=== PATIENT | female | born 1950 | race Caucasian/White ===

== ENCOUNTER → 2021-07-14 | Outpatient (REF) | payer MEDICARE, SELFPAY | LOC: LABSPEC 10:45 | PROVIDERS: Visit Provider Nurse Practitioner Family | DX: Z20.822 Contact with and (suspected) exposure to COVID-19 (principal) | CPT/HCPCS: 86769 ==

== ENCOUNTER → 2021-10-11 09:51 | Outpatient (CLI) | payer MEDICARE, OTHER, SELFPAY ==
--- NOTE | 2021-10-11 09:57 | BI_ITS ---
MAMMOGRAPHY - BILATERAL SCREENING REASON FOR EXAM: Female, 71 years old. Routine annual screening examination. PERTINENT HISTORY: Personal history of breast cancer. Prior left lumpectomy. Aunt with breast cancer. TECHNIQUE: Digital bilateral breast carolyn (3D mammographic acquisition) in the CC and MLO projections. 2-D mediolateral oblique (MLO) and craniocaudad (CC) views of both breasts were obtained. CAD: Full Field Digital Mammography with Computer Added Detection was performed. COMPARISON: Comparison is made with prior outside examination dated 10/08/2020. FINDINGS: Breast Composition: There are scattered areas of fibroglandular density. There are no dominant masses or suspicious calcifications. The patient is status post lumpectomy in the upper deep lateral aspect of the left breast with resultant breast deformity and postoperative scarring. No other significant abnormalities are identified. There has been no significant change since the prior study. BI/SCRN MAMM (CAD)W/CAROLYN BILAT IMPRESSION: Stable bilateral screening mammogram. Yearly follow-up mammogram recommended. (A) ASSESSMENT CATEGORY: BIRADS Category 2: Benign. A letter regarding these results will be sent to the patient by the facility within 30 days. Approximately 10% of breast cancers are not detected by mammography. A normal mammogram should not delay biopsy of a clinically suspicious abnormality. [id number] Electronically Signed: Parag Juares MD at 8:49 EST , Service support ,
== END ==
PROVIDERS: Referring Provider Nurse Practitioner Family; Visit Provider Nurse Practitioner Family
DX: Z12.31 Encounter for screening mammogram for malignant neoplasm of breast (principal)
CPT/HCPCS: 77063; 77067

== ENCOUNTER 2021-12-08 11:04 | Outpatient (CLI) | payer MEDICARE, OTHER, SELFPAY ==
[2021-12-08 12:31] LABS: ALB/GLOB Ratio 1.2 RATIO (0.9-2.4); AST(SGOT) 12 U/L (15-37); Alanine Aminotransfer ALT/SGPT 22 U/L (13-56); Albumin, Serum 3.8 g/dL (3.2-5.0); Alkaline Phosphatase 78 U/L (45-117); Anion Gap 6 (5-15); BUN 16 mg/dL (7-18); Chloride 108 mmol/L (98-107); Cholesterol 229 mg/dL (200); Creatinine, Serum 0.76 mg/dL (0.55-1.02); EST Glomerular Filtration Rate 80 mL/min (>60); Est Glom Filt Rate - Afr Amer 97 mL/min (>60); Globulin 3.2 g/dL (2.2-4.2); Glucose 94 mg/dL (74-106); High Density Lipoprotein 72 mg/dL; Potassium 3.7 mmol/L (3.5-5.1); Sodium Level 142 mmol/L (136-145); Thyroid Stim Hormone (TSH) 0.55 uIU/mL (0.358-3.74); Triglycerides 82 mg/dL; Very Low Density Lipoprotein 16 mg/dL (5-40)
[2021-12-08 14:12] LABS: Absolute Lymphocyte Count 1.75 X10^3/uL (0.83-4.51); Absolute Neutrophil Count 3.4 X10^3/uL (2.0-7.7); Basophil# 0.04 X10^3/uL; Basophil% 0.7 % (0-1); Eosinophil# 0.28 X10^3/uL; Eosinophils% 4.8 % (0-5); Hematocrit 40.7 % (37-47); Hemoglobin 13.8 g/dL (12.0-15.0); Lymphocyte # 1.75 X10^3/ul (0.83-4.51); Lymphocyte % 29.9 % (19-41); Mean Corp Hgb Conc 33.9 g/dL (32-36); Mean Corpuscular Hgb 32.5 pg (27.0-32.0); Mean Platelet Vol. 10.5 fl (6.2-12.0); Monocyte% 6.8 % (0-10); NRBC Flagged by Analyzer 0 % (0-5); Neutrophil # 3.37 X10^3/uL (2.7-7.7); Neutrophil % 57.5 % (47-70); Platelet Count 315 K/mm3 (150-450); RBC Distribution Width CV 12.8 % (11.6-14.6); RBC Distribution Width SD 45.1 fl (35.1-43.9); Red Blood Count 4.24 M/mm3 (4.2-5.4); White Blood Count 5.9 K/mm3 (4.4-11.0)
[2021-12-08 14:45] LABS: Hemoglobin A1c 5.4 % (3.8-5.6)
== END 2021-12-08 23:59 | disposition home or self-care (01) ==
LOC: LABSPEC 11:10
PROVIDERS: Visit Provider Nurse Practitioner Family
DX: Z00.00 Encounter for general adult medical examination without abnormal findings (principal)
CPT/HCPCS: 80053; 80061; 83036; 84443; 85025

== ENCOUNTER → 2022-11-07 | Outpatient (CLI) | payer MEDICARE, SELFPAY ==
--- NOTE | 2022-11-07 10:14 | BI_ITS ---
MAMMOGRAPHY - BILATERAL SCREENING REASON FOR EXAM: Female, 72 years old. Routine annual screening examination. PERTINENT HISTORY: Personal history of breast cancer. Prior left lumpectomy and radiation and chemotherapy.Aunt with breast cancer. TECHNIQUE: Digital bilateral breast carolyn (3D mammographic acquisition) in the CC and MLO projections. 2-D mediolateral oblique (MLO) and craniocaudad (CC) views of both breasts were obtained. CAD: Full Field Digital Mammography with Computer Added Detection was performed. COMPARISON: Comparison is made with prior study 10/11/2021. FINDINGS: Breast Composition: There are scattered areas of fibroglandular density. There are no dominant masses or suspicious calcifications. The patient is status post lumpectomy in the upper lateral aspect the left breast with resultant postoperative scarring. A tissue clip marker is seen at the operative site. There is evidence of overlying skin thickening. No other significant abnormalities are identified. There has been no significant change since the prior study. BI/SCRN MAMM (CAD)W/CAROLYN BILAT IMPRESSION: Stable bilateral screening mammogram. Yearly follow-up mammogram recommended. (A) ASSESSMENT CATEGORY: BIRADS Category 2: Benign. A letter regarding these results will be sent to the patient by the facility within 30 days. Approximately 10% of breast cancers are not detected by mammography. A normal mammogram should not delay biopsy of a clinically suspicious abnormality. [id number] Electronically Signed: Parag Juares MD at 12:45 EST ,
== END | disposition home or self-care (01) ==
LOC: OPBI 10:09
PROVIDERS: PCP Nurse Practitioner Family; Visit Provider Nurse Practitioner Family
DX: Z12.31 Encounter for screening mammogram for malignant neoplasm of breast (principal)
CPT/HCPCS: 77063; 77067

== ENCOUNTER → 2022-11-28 | Outpatient (CLI) | payer MEDICARE, SELFPAY ==
--- NOTE | 2022-11-28 15:38 | NEURO ---
NCS and/or EMG Patient Report Ordering Doctor: Enriqueta Alba NP DATE OF SERVICE: 11/28/22 Indication: Eight month history of intermittent right hand numbness predominantly affecting the first three digits. Symptoms are provoked by sleep, brushing her teeth, and holding her arm in an elevated position. Evaluate for entrapment neuropathy. Findings: Nerve conduction studies were performed in the right upper extremity. The right median motor study recording the abductor pollicis brevis showed a normal amplitude, normal distal latency and normal conduction velocity. The right ulnar motor study recording the abductor digiti minimi showed a normal amplitude, normal distal latency and normal conduction velocity. No conduction block or focal slowing was present across the elbow. The right median sensory response recording digit two showed a normal amplitude, latency and conduction velocity. The right ulnar sensory response recording digit five showed a normal amplitude, latency and conduction velocity. The right radial sensory response recording over the extensor snuff box showed a normal amplitude, latency and conduction velocity. Needle EMG of the right upper extremity muscles was performed. No denervation was seen in any muscle, however, the abductor pollicis brevis was not adequately sampled due to patient pain. Motor units in the right abductor pollicis brevis were normal morphology, but with reduced recruitment. All other motor unit morphology, activation and recruitment patterns were normal. Impression: This is an abnormal study. There is electrophysiologic evidence of median neuropathy across the right wrist. The pathophysiology is predominantly demyelinating. These findings are compatible with the clinical diagnosis of carpal tunnel syndrome. There was no clear evidence of a superimposed cervical radiculopathy in the right upper extremity. Harrison Sheets D.O. Multi Select Codes Neurology Neurology Interp Codes: 84297-27 Musc test done w/n test comp (interp) and [id number] [facility] cndj tst 5-6 studies (interp)
[2022-11-28 16:36] LABS: Absolute Lymphocyte Count 2.69 X10^3/uL (0.83-4.51); Absolute Neutrophil Count 3.5 X10^3/uL (2.0-7.7); Basophil# 0.04 X10^3/uL; Basophil% 0.6 % (0-1); Eosinophil# 0.34 X10^3/uL; Eosinophils% 4.7 % (0-5); Hematocrit 38.2 % (37-47); Hemoglobin 12.8 g/dL (12.0-15.0); Lymphocyte # 2.69 X10^3/ul (0.83-4.51); Mean Corp Hgb Conc 33.5 g/dL (32-36); Mean Corpuscular Hgb 30.9 pg (27.0-32.0); Mean Corpuscular Volume 92.3 fL (81-99); Mean Platelet Vol. 9.8 fl (6.2-12.0); Monocyte# 0.63 X10^3/uL; Monocyte% 8.7 % (0-10); NRBC Flagged by Analyzer 0 % (0-5); Neutrophil # 3.54 X10^3/uL (2.7-7.7); Neutrophil % 48.6 % (47-70); Platelet Count 291 K/mm3 (150-450); RBC Distribution Width CV 12.5 % (11.6-14.6); RBC Distribution Width SD 42.7 fl (35.1-43.9); Red Blood Count 4.14 M/mm3 (4.2-5.4); White Blood Count 7.3 K/mm3 (4.4-11.0)
[2022-11-28 17:20] LABS: Vitamin B12 1238 pg/mL (211-911); Vitamin D,25 Hydroxy 60.8 ng/mL
[2022-11-28 18:10] LABS: ALB/GLOB Ratio 1.5 RATIO (0.9-2.4); AST(SGOT) 15 U/L (15-37); Alanine Aminotransfer ALT/SGPT 21 U/L (13-56); Albumin, Serum 4.1 g/dL (3.2-5.0); Alkaline Phosphatase 64 U/L (45-117); Anion Gap 6 (5-15); BUN 27 mg/dL (7-18); BUN/Creat Ratio 28.5 RATIO (10-20); Calcium,Total 9.2 mg/dL (8.5-10.1); Chloride 109 mmol/L (98-107); Cholesterol 236 mg/dL (200); Creatinine, Serum 0.95 mg/dL (0.55-1.02); EST Glomerular Filtration Rate 62 mL/min (>60); Est Glom Filt Rate - Afr Amer 75 mL/min (>60); Estradiol < 11.0 pg/mL; Free T3 2.2 pg/mL (2.18-3.98); Globulin 2.8 g/dL (2.2-4.2); Glucose 107 mg/dL (74-106); High Density Lipoprotein 73 mg/dL; Potassium 3.9 mmol/L (3.5-5.1); Protein, Total 6.9 g/dL (6.4-8.2); Sodium Level 143 mmol/L (136-145); T4 Free Direct 0.96 ng/dL (0.76-1.46); Thyroid Stim Hormone (TSH) 1.08 uIU/mL (0.358-3.74); Triglycerides 173 mg/dL; Very Low Density Lipoprotein 35 mg/dL (5-40)
[2022-11-28 19:23] LABS: Hemoglobin A1c 5.6 % (3.8-5.6)
[2022-11-28 22:38] LABS: Progesterone Level < 0.21 ng/mL (See Comment)
[2022-11-30 09:58] LABS: DHEA Sulfate 30.8 ug/dL (20.4-186.6)
== END | disposition home or self-care (01) ==
PROVIDERS: PCP Nurse Practitioner Family; Visit Provider Nurse Practitioner Family
DX: E55.9 Vitamin D deficiency, unspecified (principal); R20.0 Anesthesia of skin; E78.5 Hyperlipidemia, unspecified; E03.9 Hypothyroidism, unspecified; F41.9 Anxiety disorder, unspecified; E28.39 Other primary ovarian failure; Z79.899 Other long term (current) drug therapy
CPT/HCPCS: 36415; 80053; 80061; 82306; 82607; 82627; 82670; 83036; 84144; 84403; 84439; 84443; 84481; 85025; 95886; 95909; 82626

== ENCOUNTER → 2023-07-10 | Outpatient (CLI) | payer MEDICARE, SELFPAY ==
[2023-07-10 09:35] LABS: Absolute Lymphocyte Count 2.12 X10^3/uL (0.83-4.51); Absolute Neutrophil Count 3.5 X10^3/uL (2.0-7.7); Basophil# 0.04 X10^3/uL; Basophil% 0.6 % (0-1); Eosinophil# 0.37 X10^3/uL; Eosinophils% 5.8 % (0-5); Hematocrit 39.7 % (37-47); Hemoglobin 12.8 g/dL (12.0-15.0); Lymphocyte # 2.12 X10^3/ul (0.83-4.51); Lymphocyte % 33.2 % (19-41); Mean Corp Hgb Conc 32.2 g/dL (32-36); Mean Corpuscular Hgb 31.4 pg (27.0-32.0); Mean Corpuscular Volume 97.5 fL (81-99); Monocyte# 0.36 X10^3/uL; Monocyte% 5.6 % (0-10); NRBC Flagged by Analyzer 0 % (0-5); Neutrophil # 3.46 X10^3/uL (2.7-7.7); Neutrophil % 54.3 % (47-70); Platelet Count 291 K/mm3 (150-450); RBC Distribution Width CV 12.2 % (11.6-14.6); RBC Distribution Width SD 43.5 fl (35.1-43.9); Red Blood Count 4.07 M/mm3 (4.2-5.4); White Blood Count 6.4 K/mm3 (4.4-11.0)
[2023-07-10 09:54] LABS: Hemoglobin A1c 5.4 % (3.8-5.6)
[2023-07-10 10:11] LABS: Vitamin B12 1599 pg/mL (211-911); Vitamin D,25 Hydroxy 73.1 ng/mL
[2023-07-10 10:28] LABS: ALB/GLOB Ratio 1.2 RATIO (0.9-2.4); AST(SGOT) 12 U/L (15-37); Alanine Aminotransfer ALT/SGPT 28 U/L (13-56); Albumin, Serum 3.8 g/dL (3.2-5.0); Alkaline Phosphatase 80 U/L (45-117); Anion Gap 6 (5-15); BUN 17 mg/dL (7-18); BUN/Creat Ratio 20.9 RATIO (10-20); Calcium,Total 9.3 mg/dL (8.5-10.1); Chloride 106 mmol/L (98-107); Cholesterol 228 mg/dL (200); Creatinine, Serum 0.81 mg/dL (0.55-1.02); EST Glomerular Filtration Rate 74 mL/min (>60); Est Glom Filt Rate - Afr Amer 89 mL/min (>60); Estradiol < 11.0 pg/mL; Globulin 3.1 g/dL (2.2-4.2); Glucose 105 mg/dL (74-106); High Density Lipoprotein 71 mg/dL; Potassium 4.1 mmol/L (3.5-5.1); Protein, Total 6.9 g/dL (6.4-8.2); Sodium Level 140 mmol/L (136-145); T4 Free Direct 0.93 ng/dL (0.76-1.46); Triglycerides 110 mg/dL; Very Low Density Lipoprotein 22 mg/dL (5-40)
[2023-07-10 10:52] LABS: Progesterone Level < 0.21 ng/mL (See Comment)
== END | disposition home or self-care (01) ==
LOC: LAB 08:38
PROVIDERS: PCP Nurse Practitioner Family; Visit Provider Nurse Practitioner Family
DX: E03.9 Hypothyroidism, unspecified (principal); F41.9 Anxiety disorder, unspecified; E78.5 Hyperlipidemia, unspecified; E55.9 Vitamin D deficiency, unspecified; R69 Illness, unspecified; E28.39 Other primary ovarian failure; Z13.9 Encounter for screening, unspecified; Z79.899 Other long term (current) drug therapy
CPT/HCPCS: 36415; 80053; 80061; 82306; 82607; 82627; 82670; 83036; 84144; 84403; 84439; 84443; 84481; 85025; 82626

== ENCOUNTER → 2023-11-20 | Outpatient (CLI) | payer MEDICARE, SELFPAY ==
--- NOTE | 2023-11-20 12:30 | MRI_ITS ---
EXAM: MR CERVICAL SPINE WITHOUT INTRAVENOUS CONTRAST CLINICAL INDICATION: LOSS OF REFLEXES RT ARM TECHNIQUE: Multiplanar and multisequence MR images of the cervical spine without intravenous contrast were performed. COMPARISON: No relevant prior studies available. FINDINGS: VERTEBRAE: Loss of the normal cervical lordosis which may be due to muscle spasm or head positioning. Normal vertebral body height. No bone marrow edema. SPINAL CORD: Unremarkable in signal and morphology. SOFT TISSUES: Normal. No prevertebral soft tissue swelling. LYMPH NODES: Normal. There is no cervical adenopathy. DISCS/SPINAL CANAL/NEURAL FORAMINA: C2-C3: Normal. Normal disc height and morphology. Normal spinal canal. Normal neuroforamina. C3-C4: Minimal anterior listhesis. No significant disc space narrowing. Mild disc bulging without impingement on the spinal canal. Narrowing of the right neural foramen related to facet arthropathy. C4-C5: Minimal anterior listhesis. Mild disc space narrowing. Mild disc protrusion without significant impingement on the spinal canal mild narrowing of the right neural foramen related to uncinate joint hypertrophy. C5-C6: Prominent disc space narrowing and vertebral body hypertrophy. Central disc osteophyte complex causes mild spinal stenosis. Moderate narrowing of the neural foramina related to uncinate joint hypertrophy. C6-C7: Moderate disc space narrowing. Broad-based disc protrusion causes minimal impression on thecal sac. Prominent narrowing of the neural foramina related to uncinate joint hypertrophy. C7-T1: Minimal disc space narrowing. Mild anterior listhesis. Mild disc bulging without significant impression on the thecal sac. Intact neural foramina. MRI/Spine Cervical (Routine) IMPRESSION: 1. Multilevel spondylosis without critical spinal stenosis. 2. Multilevel neural foraminal stenoses as described. 3. Intact cervical cord. Electronically Signed: Kush Kat MD at 9:21 EST ,
== END | disposition home or self-care (01) ==
LOC: MRI 12:00
PROVIDERS: PCP Nurse Practitioner Family; Referring Provider Anesthesiology Pain Medicine; Visit Provider Anesthesiology Pain Medicine
DX: M50.30 Other cervical disc degeneration, unspecified cervical region (principal)
CPT/HCPCS: 72141

== ENCOUNTER → 2023-11-27 | Outpatient (CLI) | payer MEDICARE, SELFPAY ==
--- NOTE | 2023-11-27 12:24 | BI_ITS ---
MAMMOGRAPHY - BILATERAL SCREENING REASON FOR EXAM: Female, 73 years old. Routine annual screening examination. PERTINENT HISTORY: Personal history of breast cancer. Prior left lumpectomy with radiation. TECHNIQUE: Digital bilateral breast carolyn (3D mammographic acquisition) in the CC and MLO projections. 2-D mediolateral oblique (MLO) and craniocaudad (CC) views of both breasts were obtained. CAD: Full Field Digital Mammography with Computer Added Detection was performed. COMPARISON: Comparison is made with prior study dated May 07, 2023 and October 11, 2021. FINDINGS: Breast Composition: There are scattered areas of fibroglandular density. There are no dominant masses or suspicious calcifications. A tissue clip marker is seen in the deep upper lateral aspect of the left breast at the lumpectomy site. Postoperative changes are seen. Stable benign-appearing axillary lymph nodes. No other significant abnormalities are identified. There has been no significant change since the prior study. BI/SCRN MAMM (CAD)W/CAROLYN BILAT IMPRESSION: Stable bilateral screening mammogram. Yearly follow-up mammogram recommended. (A) ASSESSMENT CATEGORY: BIRADS Category 2: Benign. A letter regarding these results will be sent to the patient by the facility within 30 days. Approximately 10% of breast cancers are not detected by mammography. A normal mammogram should not delay biopsy of a clinically suspicious abnormality. [id number] Electronically Signed: Parag Juares MD at 13:31 EST ,
--- OUTSIDE RECORDS SUMMARY | 2023-11-27 12:50 | XMS RPT_ITS | CCD ---
Author Name Unknown Address [address] [place] [address] Organization [facility] Care Team Providers Care Conveyor Loader Name Role Phone Lluvia Zelaya Unavailable Unavailable Unavailable Frandy Avalos MD Primary Care Provider Frandy Avalos MD Primary Care Provider Tammy Fonseca MD Primary Care Provider Allergies Allergy Classification Reported Allergen(s) Allergy Type Date of Onset Reaction(s) Facility anastrozole (1 source) anastrozole; Translations: [Arimidex] Drug Allergy [facility] [employer] Phone: Macrolides (antibiotic) (1 source) Erythromycin; Translations: [Erythromycin Base TABS] Drug Allergy [facility] [employer] Phone: NITROFURANTOIN, MACROCRYSTALS / Nitrofurantoin, Monohydrate (1 source) NITROFURANTOIN, MACROCRYSTALS / Nitrofurantoin, Monohydrate; Translations: [Macrobid] Drug Allergy [facility] [employer] Phone: Opioid Agonists (2 sources) traMADol; Translations: [tramadol] Drug Allergy [facility] [employer] Phone: Prochlorperazine (1 source) Prochlorperazine; Translations: [Prochlorperazine Maleate TABS] Drug Allergy [facility] [employer] Phone: Quinolones (antibiotic) (1 source) levoFLOXacin; Translations: [levofloxacin] Drug Allergy [facility] Work Phone: Serotonin Reuptake Inhibitors (SSRIs) (1 source) traZODone; Translations: [trazodone] Drug Allergy [facility] [email or web address] Work Phone: Sulfonamides (antibiotic) (1 source) Sulfamethoxazole; Translations: [sulfa] Drug Allergy [facility] Work Phone: Tamoxifen (1 source) Tamoxifen; Translations: [Tamoxifen Citrate TABS] Drug Allergy [facility] [employer] Phone: zaleplon (1 source) zaleplon; Translations: [Sonata CAPS] Drug Allergy [facility] [employer] Phone: zolpidem (1 source) zolpidem; Translations: [Ambien] Drug Allergy [facility] [employer] Phone: (3 sources) Azithromycin Drug Allergy 07-09-20 Other: See Comments [facility] (3 sources) NITROFURANTOIN, MACROCRYSTALS / Nitrofurantoin, Monohydrate Drug Allergy 07-09-20 Other: See Comments [facility] (3 sources) Sulfonamides (Antibiotic) Drug Intolerance 07-09-20 Other: See Comments [facility] (3 sources) traMADol Drug Allergy 07-09-20 19 Itching [facility] (3 sources) traZODone Drug Allergy 07-09-20 19 Shortness of Breath [facility] (3 sources) zolpidem Drug Allergy 07-09-20 Other: See Comments [facility] Medications Completed/Discontinued Medications Medication Drug Class(es) Dates Sig (Normalized) Sig (Original) ALPRAZolam 0.25 mg oral tablet (3 sources) Benzodiazepine Start: 02-10-2021 take 2 tablets by mouth at bedtime as needed ALPRAZolam (XANAX) 0.25 mg tablet Indications: Chronic insomnia Take 2 tablets by mouth at bedtime as needed for up to 90 days. 180 tablet 0 02/10/2021 Active Problems Problem Classification Problem Date Documented Da te Episodic/Chronic Cancer of breast (3 sources) Malignant neoplasm of female breast; Translations: [Malignant neoplasm of unspecified site of left female breast] Onset: 07-09-2019 07-09-2019 Chronic Cancer of breast (1 source) History of malignant neoplasm of breast; Translations: [Personal history of malignant neoplasm of breast] Episodic Conditions associated with dizziness or vertigo (4 sources) Meniere's disease of left inner ear; Translations: [Meniere's disease, unspecified] Onset: 07-09-2019 Resolved: 06-05-2019 07-09-2019 Chronic Results Test Name Value Interpretation Reference Range Facil ity Vital Signs Date Time Vital Sign Value Performing Clinician Faci lity 04-13-2021 15:07-0400 Body height 150.5 cm LluviaMalhar Phone: [place] [employer] Phone: 04-13-2021 15:07-0400 Body mass index (BMI) [Ratio] 26.25 kg/m2 [facility] Phone: [facility] [employer] Phone: 04-13-2021 15:07-0400 Body surface area Derived from formula 1.55 m2 [employer] Phone: [facility] [employer] Phone: 04-13-2021 15:07-0400 Body temperature 97.5 [degF] LluviaMalhar Phone: [facility] [employer] Phone: 04-13-2021 15:07-0400 Body weight 59.45 kg [employer] Phone: [facility] [employer] Phone: 04-13-2021 15:07-0400 Diastolic blood pressure 66 mm[Hg] [employer] Phone: [facility] [employer] Phone: 04-13-2021 15:07-0400 Heart rate 88 /min Lluvia Su[place] Work Phone: [facility] Work Phone: 04-13-2021 15:07-0400 SaO2% (BldA) [Mass fraction] 98 % Lluvia Su[place] Work Phone: [facility] [employer] [facility] Work Phone: 04-13-2021 15:07-0400 Systolic blood pressure 106 mm[Hg] Lluvia [place] Work Phone: [facility] Work Phone: Encounters Encounter Date Encounter Type Care Provider Facility Start: 05-19-2023 ambulatory Elsy Edward MA [facility] Procedures Date Procedure Procedure Detail Performing Clinician Start: 10-08-2020 Mammography Frandy wright MD Work Phone: Start: 07-09-2019 Adult depression screening assessment Frandy Avalos MD Work Phone: Start: 08-16-2017 Colonoscopy Frandy wright MD Work Phone: section Lluvia Suarez [place] Work Phone: Hysterectomy Lluvia burns Work Phone: Operation on bladder Pb Suarez [place] Work Phone: Operative procedure on knee Lluvia [place] Work Phone: Plan of Treatment Date Care Activity Detail Author Start: 08-16-2027 Colonoscopy COLONOSCOPY [facility] Start: 08-16-2027 COLORECTAL CANCER SCREENING COLORECTAL CANCER SCREENING [facility] Start: 05-20-2026 LIPID SCREEN LIPID SCREEN [facility] Start: 05-20-2024 DIABETES SCREEN DIABETES SCREEN [facility] Start: 06-23-2023 Influenza vaccination [facility] Start: 10-23-2022 ADVANCE DIRECTIVE DISCUSSION ADVANCE DIRECTIVE DISCUSSION [facility] Start: 10-23-2022 DEPRESSION ASSESSMENT DEPRESSION ASSESSMENT [facility] Start: 06-23-2022 Influenza vaccination INFLUENZA (#1) [facility] Start: 12-03-2021 ANNUAL PCP TEAM CHRONIC DISEASE VISIT ANNUAL PCP TEAM CHRONIC DISEASE VISIT [facility] Start: 10-23-2021 ADVANCE DIRECTIVE DISCUSSION ADVANCE DIRECTIVE DISCUSSION [facility] Start: 10-08-2021 Mammography MAMMOGRAM [facility] Start: 04-27-2021 PTLACEY, Provider: Nadir England, Status: Pen, Time: 10:00 AM MARY, Provider: Nadir England, Status: Pen, Time: 10:00 AM [facility] Work Phone: Start: 07-09-2020 Adult depression screening assessment DEPRESSION SCREENING [facility] Start: 10-27-2015 SHINGRIX VACCINE (2 of 3) SHINGRIX VACCINE (2 of 3) [facility] Start: 1996 COLOGUARD (FIT-DNA) COLOGUARD (FIT-DNA) [facility] Start: [address] COLONOGRAPHY [facility] Start: 1996 FECAL OCCULT BLOOD FECAL OCCULT BLOOD [facility] Start: 1996 SIGMOIDOSCOPY SIGMOIDOSCOPY [facility] Start: 1970 Urine microalbumin profile DTAP,TDAP,TD (1 - Tdap) [facility] Start: 1969 BP CONTROLLED (<130/80) BP CONTROLLED (<130/80) [facility] Start: [birth year]22-1951 COVID-19 VACCINE (#1) COVID-19 VACCINE (#1) [facility] Immunizations Immunization Date Immunization Notes Care Provider Brad medina 08-23-2019 influenza, high dose seasonal, preservative-free Frandy Avalos MD Work Phone: [facility] 08-23-2019 pneumococcal conjuga te vaccine, 13 valent Lluvia S [employer] Work Phone: [facility] 08-23-2019 Seasonal trivalent influenza vaccine, adjuvanted, preservative free Lluvia S [employer] [facility] Phone: [facility] Work Phone: 08-20-2018 influenza, high dose seasonal, preservative-free Lluvia S [employer] Work Phone: [facility] 08-20-2018 pneumococcal polysaccharide vaccine, 23 valent Lluvia Suarez [place] Work Phone: [facility] 08-03-2017 influenza, high dose seasonal, preservative-free Lluvia Suarez [place] Work Phone: [facility] 08-02-2016 influenza virus vaccine, unspecified formulation Lluvia Suarez [place] Work Phone: [facility] 09-01-2015 varicella virus vaccine Stevie Suarez [place] Work Phone: [facility] 09-01-2015 zoster vaccine, live Pb y Erick [place] Work Phone: [facility] 07-16-2014 influenza virus vaccine, unspecified formulation Lluvia Suarez [place] Work Phone: [facility] Payers Date Payer Category Payer Medicare MEDICARE MEDICAR E A AND B [id number] 2016-Present [phone] [place] [address] Medicare [id number] 2016 Medicare MEDICARE MEDICAR E A AND B [id number] 2016-Present [phone] [address] [address] [place] [address] Medicare [id number] 2016 Unknown 2016 Unknown [employer] NS[employer]ICA SUPPLEMENT [id number] 2016-Present [phone] [address] [place] [address] Indemnity [id number] Social History Date Type Detail Facility Former smoker Former smoker -[facility] Work Phone: Start: 07-09-2019 Tobacco smoking stat [facility] Never smoked tobacco [facility] Start: 07-09-2019 Tobacco use and exposure Smokeless tobacco non-user [facility] Start: 12-03-2020 Alcohol intake Current drinke r of alcohol (finding) [facility] Start: 07-09-2019 History SDOH Alcohol Comment very little [facility] Start: 1950 Sex Assigned At Not on file [facility] Gender identity Not on file [facility] in History of Present illness Narrative 05-19-2023 Elsy Edward MA - 05/19/2023 11:24 AM EDT Note Date & Type Note Facility 05-19-2023 History of Presen t illness Narrative POPULATION HEALTH NAVIGATION OUTREACH Action/I [employer] Care Gaps 7.5.23 Discuss/Due for: Reviewed EMR/Care Everywhere Per MyChart encounter on 03/03/2023, patient switched providers - patient under the care of Dr. Tammy Fonseca Outcome: Updated PCP Field Patient Identified by Name and : NO Outreach Outcome/Action PCP field updated Navigation Signature: Elsy Edward MA May 19, 2023 11:33 AM documented in this encounter [facility] Progress note 03-07-2023 Note Date & Type Note Facility 03-07-2023 Note HNO ID: [id number] Author: Leti Bryson Service: ? Author Type: ? Type: Progress Notes Filed: 03/07/2023 7:28 AM Note Text: POPULATION HEALTH NAVIGATION OUTREACH Action/I 03/07/23 Received MyChart response from patient: I do not have a primary care physician with [facility]. We have chosen health nurse wound care elsewhere. Sent patient MyChart message inquiring who new PCP is so we can update chart. Patient Identified by Name and : YES, via MyChart Outreach Outcome/Action MyChart message sent Did you use a PCP flex slot to schedule this appointment? N/A Navigation Signature: Leti Henry Population Health Navigator March 07, 2023 7:23 AM [facility] [place] Clinical Note 03-03-2023 Note Date & Type Note Facility 03-03-2023 Note Patient Outreach (NE TNMAGDY) CHELLEJONAS EATONKI Jose ([id number]) 1950 F Date Time Provider Department 03/03/23 LETI HENRY ([facility]) [facility] During your visit today, we recorded the following information about you: Leti Henry [facility] 03/03/2023 5:01 PM Signed POPULATION HEALTH NAVIGATION OUTREACH Action/03/03/23 Discuss/due [employer] Care Gaps: ~Medicare Wellness exam ~Screening Mammogram ~Advance Directives Outcome: ~Left message on voice mail and sent KARALIThart message. Patient Identified by Name and : NO Outreach Outcome/Action Unable to reach patient: Left message MyChart message sent Advance Directives sent Did you use a PCP flex slot to schedule this appointment? N/A Reason for Outreach Care Gap or Scheduling/Wellness visits Payer: Payor: MEDICARE / Plan: MEDICARE A AND B / Product Type: Medicare / Care Gap Reviewed:: Annual Wellness visit Breast Cancer screening Reminder: Reminder note to check Health Maintenance for items below Health Maintenance items due: COVID-19 VACCINE(1) Never done BP CONTROLLED (<130/80) Never done DTAP,TDAP,TD(1 - Tdap) Never done SHINGRIX VACCINE(2 of 3) due on 10/27/2015 MAMMOGRAM due on 10/08/2021 ANNUAL PCP TEAM CHRONIC DISEASE VISIT due on 12/03/2021 ADVANCE DIRECTIVE DISCUSSION Never done DEPRESSION ASSESSMENT Never done Navigation Signature: Leti Henry Population Health Navigator March 03, 2023 11:44 AM Leti Henry [facility] 03/07/2023 7:28 AM Signed POPULATION HEALTH NAVIGATION OUTREACH Action/03/07/23 Received KARALIThart response from patient: I do not have a primary care physician with [facility]. We have chosen health nurse wound care elsewhere. Sent patient MyChart message inquiring who new PCP is so we can update chart. Patient Identified by Name and : YES, via MyChart Outreach Outcome/Action MyChart message sent Did you use a PCP flex slot to schedule this appointment? N/A Navigation Signature: Leti Henry Population Health Navigator March 07, 2023 7:23 AM Allergies As of Date: 03/03/2023 Noted Allergy Reaction AMBIEN (ZOLPIDEM) 07/09/2019 14 - Other: See Comments Comments: Forgetfulness, memory loss ARITHROMYCIN (AZITHROMYCIN) 07/09/2019 14 - Other: See Comments Comments: Patient states had all the bad side effects MACROBID (NITROFURANTOIN MONOHYD/*07/09/2019 14 - Other: See Comments Comments: Patient states she had all bad side effects SULFA (SULFONAMIDE ANTIBIOTICS) 07/09/2019 14 - Other: See Comments Comments: Patient states she had all the bad side effects TRAMADOL 07/09/2019 9 - Itching TRAZODONE 07/09/2019 12 - Shortness of Breath Date Reviewed: 12/03/2020 Reviewed by: Sowmya Raman Ma - Fully Assessed Reason for Visit: Population Health Navigation Outreach [3910] Cmt: [employer] Care Gaps Prescriptions as of 03/07/2023 - levothyroxine (LEVOXYL) 75 mcg tablet Take 1 tablet by mouth daily before breakfast. - ALPRAZolam (XANAX) 0.25 mg tablet Take 2 tablets by mouth at bedtime as needed for up to 90 days. - FLUoxetine (PROZAC) 20 mg capsule Take 2 capsules by mouth once daily. - triamterene-hydrochlorothiazide 37.5-25 mg per capsule Take 1 capsule by mouth once daily. - clobetasol (TEMOVATE) 0.05 % cream Apply twice daily as needed - lovastatin (MEVACOR) 20 mg tablet Take 1 tablet by mouth daily at bedtime. Problem List As Of Date 03/03/2023 Noted Resolved Malignant neoplasm of left female breast (HCC) *07/09/2019 Meniere's disease of left ear [H81.02] 07/09/2019 Hyperlipidemia, mixed [E78.2] 07/09/2019 Hypothyroidism, acquired [E03.9] 07/09/2019 Chronic insomnia [F51.04] 07/09/2019 Essential hypertension [I10] 11/01/2019 Encounter Status:Closed by LETI PLEITEZ on 03/03/23 [facility] Progress note 03-03-2023 Note Date & Type Note Facility 03-03-2023 Note HNO ID: [id number] Author: Leti Henry Pss Service: ? Author Type: ? Type: Progress Notes Filed: 03/03/2023 5:01 PM Note Text: POPULATION HEALTH NAVIGATION OUTREACH Action/03/03/23 Discuss/due [employer] Care Gaps: ~Medicare Wellness exam ~Screening Mammogram ~Advance Directives Outcome: ~Left message on voice mail and sent MyChart message. Patient Identified by Name and : NO Outreach Outcome/Action Unable to reach patient: Left message MyChart message sent Advance Directives sent Did you use a PCP flex slot to schedule this appointment? N/A Reason for Outreach Care Gap or Scheduling/Wellness visits Payer: Payor: MEDICARE / Plan: MEDICARE A AND B / Product Type: Medicare / Care Gap Reviewed:: Annual Wellness visit Breast Cancer screening Reminder: Reminder note to check Health Maintenance for items below Health Maintenance items due: COVID-19 VACCINE(1) Never done BP CONTROLLED (<130/80) Never done DTAP,TDAP,TD(1 - Tdap) Never done SHINGRIX VACCINE(2 of 3) due on 10/27/2015 MAMMOGRAM due on 10/08/2021 ANNUAL PCP TEAM CHRONIC DISEASE VISIT due on 12/03/2021 ADVANCE DIRECTIVE DISCUSSION Never done DEPRESSION ASSESSMENT Never done Navigation Signature: Leti Henry Population Health Navigator March 03, 2023 11:44 AM [facility] History of Present illness Narrative 03-03-2023 Leti Henry Pss - 03/03/2023 11:44 AM EDT Note Date & Type Note Facility 03-03-2023 History of Presen t illness Narrative POPULATION HEALTH NAVIGATION OUTREACH Action/03/03/23 Discuss/due [employer] Care Gaps: ~Medicare Wellness exam ~Screening Mammogram ~Advance Directives Outcome: ~Left message on voice mail and sent MyChart message. Patient Identified by Name and : NO Outreach Outcome/Action Unable to reach patient: Left message MyChart message sent Advance Directives sent Did you use a PCP flex slot to schedule this appointment? N/A Reason for Outreach Care Gap or Scheduling/Wellness visits Payer: Payor: MEDICARE / Plan: MEDICARE A AND B / Product Type: Medicare / Care Gap Reviewed:: Annual Wellness visit Breast Cancer screening Reminder: Reminder note to check Health Maintenance for items below Health Maintenance items due: COVID-19 VACCINE(1) Never done BP CONTROLLED (<130/80) Never done DTAP,TDAP,TD(1 - Tdap) Never done SHINGRIX VACCINE(2 of 3) due on 10/27/2015 MAMMOGRAM due on 10/08/2021 ANNUAL PCP TEAM CHRONIC DISEASE VISIT due on 12/03/2021 ADVANCE DIRECTIVE DISCUSSION Never done DEPRESSION ASSESSMENT Never done Navigation Signature: Leti Henry Population Health Navigator March 03, 2023 11:44 AM documented in this encounter [facility] Progress note 04-12-2022 Note Date & Type Note Facility 04-12-2022 Note HNO ID: [id number] Author: Tali Wylie Pharm-T Service: ? Author Type: ? Type: Progress Notes Filed: 05/09/2022 3:00 AM Note Text: Sherita Villegas is identified through a medication adherence outreach initiative based on pharmacy claims data from [email or web address] ([employer]). Patient is reviewed 04/12/22 due to medication adherence concerns with Mevacor medication(s) for Cholesterol. Per data report last fill date and quantity: 02/02/2022 for 30 days Per reconcile dispense: 02/02/2022 for 30 days Per call to pharmacy: 02/02/2022 for 30 days Contacted patient: Left Message for patient Tali Wylie Pharm-T [facility] History of Present illness Narrative 04-12-2022 Tali Jimenezelli Pharm-T - 04/12/2022 9:30 AM EDTTali Wylie Pharm-T - 04/06/2022 9:41 AM EDT Note Date & Type Note Facility 04-12-2022 History of Presen t illness Narrative Sherita Villegas is identified through a medication adherence outreach initiative based on pharmacy claims data from [email or web address] ([employer]). Patient is reviewed 04/12/22 due to medication adherence concerns with Mevacor medication(s) for Cholesterol. Per data report last fill date and quantity: 02/02/2022 for 30 days Per reconcile dispense: 02/02/2022 for 30 days Per call to pharmacy: 02/02/2022 for 30 days Contacted patient: Left Message for patient Tali Wylie Pharm-T Sherita Villegas is identified through a medication adherence outreach initiative based on pharmacy claims data from [email or web address] ([employer]). Patient is reviewed 04/06/22 due to medication adherence concerns with Mevacor medication(s) for Cholesterol. Per data report last fill date and quantity: 02/02/2022 for 30 days Per reconcile dispense: 02/02/2022 for 30 days Per call to pharmacy: 02/02/2022 for 30 days Contacted patient: Left Message for patient Tali Wylie Pharm-T documented in this encounter [facility] Clinical Note 04-06-2022 Note Date & Type Note Facility 04-06-2022 Note Patient Outreach (AM BC) SHERITA VILLEGAS ([id number]) 1950 F Date Time Provider Department 04/06/22 FRANDY AVALOS During your visit today, we recorded the following information about you: Tali Wylie Pharm-T 05/09/2022 3:00 AM Signed Sherita Villegas is identified through a medication adherence outreach initiative based on pharmacy claims data from [email or web address] ([employer]). Patient is reviewed 04/06/22 due to medication adherence concerns with Mevacor medication(s) for Cholesterol. Per data report last fill date and quantity: 02/02/2022 for 30 days Per reconcile dispense: 02/02/2022 for 30 days Per call to pharmacy: 02/02/2022 for 30 days Contacted patient: Left Message for patient Tali Young Inessa Pharm-T Tali Young Inessa Pharm-T 05/09/2022 3:00 AM Signed Sherita Villegas is identified through a medication adherence outreach initiative based on pharmacy claims data from [email or web address] (insurer). Patient is reviewed 04/12/22 due to medication adherence concerns with Mevacor medication(s) for Cholesterol. Per data report last fill date and quantity: 02/02/2022 for 30 days Per reconcile dispense: 02/02/2022 for 30 days Per call to pharmacy: 02/02/2022 for 30 days Contacted patient: Left Message for patient Tali Wylie Pharm-T Allergies As of Date: 04/06/2022 Noted Allergy Reaction AMBIEN (ZOLPIDEM) 07/09/2019 14 - Other: See Comments Comments: Forgetfulness, memory loss ARITHROMYCIN (AZITHROMYCIN) 07/09/2019 14 - Other: See Comments Comments: Patient states had all the bad side effects MACROBID (NITROFURANTOIN MONOHYD/*07/09/2019 14 - Other: See Comments Comments: Patient states she had all bad side effects SULFA (SULFONAMIDE ANTIBIOTICS) 07/09/2019 14 - Other: See Comments Comments: Patient states she had all the bad side effects TRAMADOL 07/09/2019 9 - Itching TRAZODONE 07/09/2019 12 - Shortness of Breath Date Reviewed: 12/03/2020 Reviewed by: Sowmya Raman Ma - Fully Assessed Reason for Visit: Allied Health Visit [5] Cmt: Medication Adherence Outreach Prescriptions as of 05/09/2022 - levothyroxine (LEVOXYL) 75 mcg tablet Take 1 tablet by mouth daily before breakfast. - ALPRAZolam (XANAX) 0.25 mg tablet Take 2 tablets by mouth at bedtime as needed for up to 90 days. - FLUoxetine (PROZAC) 20 mg capsule Take 2 capsules by mouth once daily. - triamterene-hydrochlorothiazide 37.5-25 mg per capsule Take 1 capsule by mouth once daily. - clobetasol (TEMOVATE) 0.05 % cream Apply twice daily as needed - lovastatin (MEVACOR) 20 mg tablet Take 1 tablet by mouth daily at bedtime. Problem List As Of Date 04/06/2022 Noted Resolved Malignant neoplasm of left female breast (HCC) *07/09/2019 Meniere's disease of left ear [H81.02] 07/09/2019 Hyperlipidemia, mixed [E78.2] 07/09/2019 Hypothyroidism, acquired [E03.9] 07/09/2019 Chronic insomnia [F51.04] 07/09/2019 Essential hypertension [I10] 11/01/2019 Encounter Status:Closed by [employer] on 05/09/22 [facility] Progress note 04-06-2022 Note Date & Type Note Facility 04-06-2022 Note HNO ID: [id number] Author: Tali Jackson Service: ? Author Type: ? Type: Progress Notes Filed: 05/09/2022 3:00 AM Note Text: Sherita Villegas is identified through a medication adherence outreach initiative based on pharmacy claims data from [email or web address] (insurer). Patient is reviewed 04/06/22 due to medication adherence concerns with Mevacor medication(s) for Cholesterol. Per data report last fill date and quantity: 02/02/2022 for 30 days Per reconcile dispense: 02/02/2022 for 30 days Per call to pharmacy: 02/02/2022 for 30 days Contacted patient: Left Message for patient Tali Hector Wylie [employer] History of Present illness Narrative Note Date & Type Note Facility History of Present illness Narrative The patient is being seen for the subsequent annual wellness visit.Past Medical, Surgical and Family History: reviewed and updated in chart.Medications and Supplements: Medications and supplements, including calcium and vitamins reviewed and updated in chart.No, the patient is not using opioids.Patient Self Assessment of Health Status: excellent.Tobacco use: Non-UserAlcohol use: User rare.Illicit drug use: Non-UserCurrent diet: well balanced diet, does consume adequate fluids and does not consume caffeine.Exercise Frequency: infrequently.Depression/Suicid e Screening: .During the past 2 weeks, the patient has not felt down, depressed or hopeless.During the past 2 weeks, the patient has not felt little interest or pleasure in doing things.Hearing Impairment: Patient has significant hearing impairment, on the left.Cognitive Impairment: No cognitive impairment observed.Bathing: performs independently.Dressing: performs independently.Walking: performs independently.Toileting: performs independently.Feeding: performs independently.Personal Hygiene: performs independently.Bowels: continent.Bladder: continent.Managing Finances: performs independently.Shopping: performs independently.Managing Medications: performs independently.Housework / Basic Home Maintenance: performs independently.Falls Risk Screening:. SHERITA has not fallen in the last 6 months.Home safety risk factors: no grab bars in the bathroom.Advance directives:. Patient has living will. Patient has healthcare POA. -[place] [employer] [facility] Work Phone: Summary Purpose Family History Unknown Family Member Name Dates Details : Mother, Father Status:Active Advance Directives No Advanced Directives Records FoundNo Advanced Directives Records FoundNo Advanced Directives Records FoundNo Advanced Directives Records FoundNo Advanced Directives Records FoundNo Advanced Directives Records Found Chief Complaint * Pt is here today to get est with a new PCP, as well as her [facility] wellness exam . This note was generated by using [employer] software. It may contain errors in wording, punctuate, or spelling. * She is here today to get established. We did conduct a review of systems and we also went through the Medicare questionnaire. We reviewed her past medical history and some of her concerns today. She also brought in a copy of the lab work from November 242020. We reviewed her cholesterol profile as well as her other labs and we discussed her elevated blood sugar of 109. We have discussed the notion of a prediabetic state and I will give her handout today that explains something she can do proactively to avoid diabetes in the future. She does admit that over the past year and a half she has had a gradual weight gain but she does eat a very well-balanced diet. We also discussed cancer screening and she is up-to-date with her screening mammogram. Many years ago she was diagnosed with breast cancer but she has remained cancer free up to this time and will continue with annual mammograms. She also states she had a colonoscopy but does not remember the exact date so she does have a copy of her examination report and will be giving us a copy as well. She also has advanced directives and we talked about providing a copy for her chart. We also discussed her issues with arthritis in her neck and she does have a radiculopathy down her right arm. She gets numbness and tingling that comes and goes. We discussed trying formal physical therapy as a way to treat her condition and she is agreeable. We also discussed her cholesterol and she has been on medication but when she got her reportback in November she stopped taking it at that time. She states her father from a coronary at age 77 but his was induced by a blood clot after a surgical complication. We talked about doing a coronary calcium scan to screen her for heart disease and have also suggested she may benefit from doing a [employer] screening. She also states she has had several preventative vaccines but in more recent times she does not want to receive vaccines. We will try to get a copy of the one she has had before for her records. She also suffers from chronic insomnia and has been taking alprazolam for several years. We talked about fall prevention and I will give her handout that goes over ways to reduceher risk of falls. We talked about putting grab bars in the bathroom and avoiding extraneous throw r ugs. She is very independent and does all of her own finances and manages her own medications. Additional Source Comments INFORMATION SOURCE (unrecogn ized section and content) DATE CREATED AUTHOR AUTHOR'S ORGANIZ ATION 10/09/2020 [facility] DATE CREATED AUTHOR AUTHOR'S ORGANIZ ATION 11/29/2020 [facility] DATE CREATED AUTHOR AUTHOR'S ORGANIZ ATION 04/14/2021 [employer] DATE CREATED AUTHOR AUTHOR'S ORGANIZ ATION 06/03/2022 [facility] DATE CREATED AUTHOR AUTHOR'S ORGANIZ ATION 03/08/2023 [facility] Source Comments (unrecognize d section and content) In the event this informatio n is protected by the Federal Confidentiality of Alcohol and Drug Abuse Patient Records regulations: The Federal rules restrict any use of the information to criminally investigate or prosecute any alcohol or drug abuse patient.[facility] the event this information is protected by the Federal Confidentiality of Alcohol and Drug Abuse Patient Records regulations: The Federal rules restrict any use of the information to criminally investigate or prosecute any alcohol or drug abuse patient.[facility] Hospital[facility] the event this information is protected by the Federal Confidentiality of Alcohol and Drug Abuse Patient Records regulations: The Federal rules restrict any use of the information to criminally investigate or prosecute any alcohol or drug abuse patient.[facility] Reason for Visit (unrecogniz ed section and content) Reason Onset Date Comments Population Health Navigation Outreach 03/03/2023 [employer] Gaps Reason Onset Date Comments Population Health Navigation Outreach 05/19/2023 [employer] Gaps 7.5.23 Care Teams (unrecognized sec tion and content) [employer]or [employer]er Relationship Specialty Start Date End Date Frandy Avalos MD [address] [place] [address] PCP - General Family Medicine 07/09/19 [employer] Relationship Specialty Start Date End Date Tammy Fonseca MD [address] [place] [address] PCP - General Pediatrics 05/19/23 FOR RECORDS PERTAINING TO PATIENTS WHO ARE OR HAVE BEEN ENROLLED IN A CHEMICAL DEPENDENCY/SUBSTANCEABUSE PROGRAM, SOME INFORMATION MAY BE OMITTED. This clinical summary was aggregated from multiple sources. Caution should be exercised in using it in the provision of clinical care. This summary normalizes information from multiple sources, and as a consequence, information in this document may materially change the coding, format and clinical context of patient data. In addition, data may be omitted in some cases. CLINICAL DECISIONS SHOULD BE BASED ON THE PRIMARY CLINICAL RECORDS. [facility]. provides no warranty or guarantee of the accuracy or completeness of information in this document.
== END | disposition home or self-care (01) ==
LOC: OPBI 12:22
PROVIDERS: PCP Nurse Practitioner Family; Referring Provider Nurse Practitioner Family; Visit Provider Nurse Practitioner Family
DX: Z12.31 Encounter for screening mammogram for malignant neoplasm of breast (principal)
CPT/HCPCS: 77063; 77067

== ENCOUNTER 2024-01-03 08:17 | Outpatient (CLI) | payer MEDICARE, SELFPAY ==
[2024-01-03 09:47] LABS: Absolute Lymphocyte Count 2.08 X10^3/uL (0.83-4.51); Basophil# 0.05 X10^3/uL; Basophil% 0.7 % (0-1); Eosinophil# 0.27 X10^3/uL; Eosinophils% 3.9 % (0-5); Hematocrit 35.8 % (37-47); Hemoglobin 11.8 g/dL (12.0-15.0); Lymphocyte # 2.08 X10^3/ul (0.83-4.51); Lymphocyte % 30.1 % (19-41); Mean Corpuscular Hgb 31.3 pg (27.0-32.0); Mean Platelet Vol. 10.5 fl (6.2-12.0); Monocyte# 0.52 X10^3/uL; Monocyte% 7.5 % (0-10); NRBC Flagged by Analyzer 0 % (0-5); Neutrophil # 3.96 X10^3/uL (2.7-7.7); Neutrophil % 57.4 % (47-70); Platelet Count 296 K/mm3 (150-450); RBC Distribution Width CV 12.7 % (11.6-14.6); RBC Distribution Width SD 44.7 fl (35.1-43.9); Red Blood Count 3.77 M/mm3 (4.2-5.4); White Blood Count 6.9 K/mm3 (4.4-11.0)
[2024-01-03 10:09] LABS: Hemoglobin A1c 5.5 % (3.8-5.6)
[2024-01-03 10:12] LABS: Vitamin B12 1195 pg/mL (211-911); Vitamin D,25 Hydroxy 56.9 ng/mL
[2024-01-03 10:23] LABS: ALB/GLOB Ratio 1.4 RATIO (0.9-2.4); AST(SGOT) 11 U/L (15-37); Alanine Aminotransfer ALT/SGPT 19 U/L (13-56); Albumin, Serum 3.8 g/dL (3.2-5.0); Alkaline Phosphatase 58 U/L (45-117); Anion Gap 6 (5-15); BUN 23 mg/dL (7-18); BUN/Creat Ratio 28.7 RATIO (10-20); Calcium,Total 9.2 mg/dL (8.5-10.1); Chloride 110 mmol/L (98-107); Cholesterol 237 mg/dL (200); EST Glomerular Filtration Rate 75 mL/min (>60); Est Glom Filt Rate - Afr Amer 90 mL/min (>60); Free T3 2.2 pg/mL (2.18-3.98); Globulin 2.7 g/dL (2.2-4.2); Glucose 94 mg/dL (74-106); High Density Lipoprotein 59 mg/dL; Potassium 3.9 mmol/L (3.5-5.1); Protein, Total 6.5 g/dL (6.4-8.2); Sodium Level 142 mmol/L (136-145); T4 Free Direct 1.07 ng/dL (0.76-1.46); Thyroid Stim Hormone (TSH) 0.28 uIU/mL (0.358-3.74); Triglycerides 88 mg/dL; Very Low Density Lipoprotein 18 mg/dL (5-40)
== END 2024-01-03 23:59 | disposition home or self-care (01) ==
LOC: LAB 08:18
PROVIDERS: PCP Nurse Practitioner Family; Visit Provider Nurse Practitioner Family
DX: E03.9 Hypothyroidism, unspecified (principal); F41.9 Anxiety disorder, unspecified; E78.5 Hyperlipidemia, unspecified; E55.9 Vitamin D deficiency, unspecified; R69 Illness, unspecified; Z13.9 Encounter for screening, unspecified
CPT/HCPCS: 36415; 80053; 80061; 82306; 82607; 83036; 84439; 84443; 84481; 85025

== ENCOUNTER → 2024-03-25 | Outpatient (CLI) | payer MEDICARE, SELFPAY ==
[2024-03-25 10:35] LABS: Color, Urine Yellow (Yellow); Glucose, Dipstick Normal (Normal); Ketone-Dipstick Negative (Negative); Leukocyte Esterase-Dipstick 100 /ul (Negative); Nitrite-Dipstick Negative (Negative); Occult Blood-Urine Negative /ul (Negative); Protein-Dipstick 15 mg/dl (Negative); Specific Gravity, Urine 1.015 (1.002-1.030); Urine Bilirubin Dipstick Negative (Negative); Urine Clarity Clear (Clear); Urine Urobilinogen Normal (Normal)
== END | disposition home or self-care (01) ==
LOC: LAB 09:32
PROVIDERS: PCP Nurse Practitioner Family; Referring Provider Nurse Practitioner Family; Visit Provider Nurse Practitioner Family
DX: R31.9 Hematuria, unspecified (principal)
CPT/HCPCS: 81002; 87086; 87088

== ENCOUNTER → 2024-05-06 | Outpatient (CLI) | payer MEDICARE, SELFPAY ==
--- NOTE | 2024-05-06 08:36 | EKG12_ITS ---
Test Reason : PRE OP Blood Pressure : / mmHG Vent. Rate : 062 BPM Atrial Rate : 062 BPM P-R Int : 136 ms QRS Dur : 076 ms QT Int : 412 ms P-R-T Axes : 056 031 065 degrees QTc Int : 418 ms Normal sinus rhythm Low voltage QRS Borderline ECG Confirmed by KEANU KEVIN, EMMA ([id number]), photograph editor AMPARO GUZMAN ([id number]) on 05/07/2024 10:48:32 AM Referred By: Ayad Brunson Confirmed By:TYSHAWN COLUNGA MD
[2024-05-06 09:16] LABS: Absolute Lymphocyte Count 2.07 X10^3/uL (0.83-4.51); Basophil# 0.05 X10^3/uL; Basophil% 0.7 % (0-1); Eosinophil# 0.34 X10^3/uL; Eosinophils% 4.8 % (0-5); Hemoglobin 12.4 g/dL (12.0-15.0); Lymphocyte # 2.07 X10^3/ul (0.83-4.51); Lymphocyte % 29.1 % (19-41); Mean Corp Hgb Conc 32.6 g/dL (32-36); Mean Corpuscular Hgb 30.9 pg (27.0-32.0); Mean Corpuscular Volume 94.8 fL (81-99); Mean Platelet Vol. 9.6 fl (6.2-12.0); Monocyte% 8.4 % (0-10); NRBC Flagged by Analyzer 0 % (0-5); Neutrophil % 56.3 % (47-70); Platelet Count 304 K/mm3 (150-450); RBC Distribution Width SD 42.1 fl (35.1-43.9); Red Blood Count 4.01 M/mm3 (4.2-5.4); White Blood Count 7.1 K/mm3 (4.4-11.0)
[2024-05-06 10:22] LABS: Anion Gap 6 (5-15); BUN 13 mg/dL (7-18); Calcium,Total 9.4 mg/dL (8.5-10.1); Chloride 107 mmol/L (98-107); Creatinine, Serum 0.76 mg/dL (0.55-1.02); EST Glomerular Filtration Rate 79 mL/min (>60); Est Glom Filt Rate - Afr Amer 95 mL/min (>60); Glucose 99 mg/dL (74-106); Potassium 4.2 mmol/L (3.5-5.1); Sodium Level 140 mmol/L (136-145)
== END | disposition home or self-care (01) ==
LOC: PSN 08:31
PROVIDERS: PCP Nurse Practitioner Family; Referring Provider Specialist; Visit Provider Specialist
DX: Z01.818 Encounter for other preprocedural examination (principal)
CPT/HCPCS: 36415; 80048; 85025; 93005

== ENCOUNTER → 2024-06-10 | Outpatient (CLI) | payer MEDICARE, SELFPAY ==
[2024-06-10 15:56] LABS: Mucous, Urine 0 SEEN /hpf (<or=2+); Red Blood Cells-Urine 0 SEEN /hpf (0-5)
[2024-06-10 16:25] LABS: Color, Urine Yellow (Yellow); Glucose, Dipstick Normal (Normal); Ketone-Dipstick Negative (Negative); Leukocyte Esterase-Dipstick 500 /ul (Negative); Nitrite-Dipstick Positive (Negative); Occult Blood-Urine 25 /ul (Negative); Protein-Dipstick 15 mg/dl (Negative); Urine Bilirubin Dipstick Negative (Negative); Urine Clarity Clear (Clear); Urine Urobilinogen Normal (Normal)
[2024-06-10 16:39] LABS: Bacteria 2+ /hpf (None Seen); Squamous Epithelial Cells - UA 10-25 SEEN /hpf (5-10); White Blood Cells >100 SEEN /hpf (0-5)
== END | disposition home or self-care (01) ==
LOC: LAB 15:41
PROVIDERS: PCP Nurse Practitioner Family; Referring Provider Nurse Practitioner Family; Visit Provider Nurse Practitioner Family
DX: N39.0 Urinary tract infection, site not specified (principal)
CPT/HCPCS: 81001; 87086; 87088; 87186

== ENCOUNTER → 2024-12-30 | Outpatient (CLI) | payer MEDICARE, SELFPAY ==
--- NOTE | 2024-12-30 08:11 | BI_ITS ---
PROCEDURE: SCRN MAMM (CAD)W/CAROLYN BILAT REASON FOR EXAM: F, Age 74 y/o, personal history of breast cancer. Prior left lumpectomy. TECHNIQUE: Bilateral screening digital breast tomosynthesis with 2D and 3D images. Computer aided detection. COMPARISON: Prior exam(s) dating back to November 27, 2023.. FINDINGS: There are scattered areas of fibroglandular density. Once again, there is evidence of postoperative changes in the deep upper lateral aspect of the left breast with resultant postoperative scarring at the biopsy site and overlying skin thickening. Stable examination. No suspicious masses, areas of developing architectural distortion, or suspicious calcifications. BI/SCRN MAMM (CAD)W/CAROLYN BILAT IMPRESSION: BI-RADS 2: BENIGN. RECOMMEND ANNUAL MAMMOGRAPHIC SCREENING. Follow-up code: Routine Follow-up The patient will be notified of the results by letter. Reading Location: [place] [address]
[2024-12-30 09:24] LABS: Absolute Lymphocyte Count 2.04 X10^3/uL (0.83-4.51); Absolute Neutrophil Count 3.5 X10^3/uL (2.0-7.7); Basophil# 0.08 X10^3/uL; Basophil% 1.2 % (0-1); Eosinophil# 0.35 X10^3/uL; Eosinophils% 5.4 % (0-5); Hematocrit 39.2 % (37-47); Lymphocyte # 2.04 X10^3/ul (0.83-4.51); Lymphocyte % 31.2 % (19-41); Mean Corp Hgb Conc 33.2 g/dL (32-36); Mean Corpuscular Hgb 31.4 pg (27.0-32.0); Mean Corpuscular Volume 94.7 fL (81-99); Mean Platelet Vol. 9.5 fl (6.2-12.0); Monocyte# 0.52 X10^3/uL; NRBC Flagged by Analyzer 0 % (0-5); Neutrophil # 3.52 X10^3/uL (2.7-7.7); Neutrophil % 53.9 % (47-70); Platelet Count 297 K/mm3 (150-450); RBC Distribution Width CV 12.7 % (11.6-14.6); RBC Distribution Width SD 44.1 fl (35.1-43.9); Red Blood Count 4.14 M/mm3 (4.2-5.4); White Blood Count 6.5 K/mm3 (4.4-11.0)
[2024-12-30 10:28] LABS: Hemoglobin A1c 5.7 % (<=5.6)
[2024-12-30 11:11] LABS: ALB/GLOB Ratio 1.9 RATIO (0.9-2.4); AST(SGOT) 16 U/L (<=31); Alanine Aminotransfer ALT/SGPT 15 U/L (<=34); Albumin, Serum 4.5 g/dL (3.4-4.8); Alkaline Phosphatase 75 U/L (35-104); Anion Gap 13 (5-15); BUN 20 mg/dL (4-19); BUN/Creat Ratio 25.4 RATIO (10-20); Calcium,Total 9.5 mg/dL (7.6-11.0); Carbon Dioxide 20.8 mmol/L (21.0-32.0); Chloride 106 mmol/L (98-108); Creatinine, Serum 0.79 mg/dL (0.70-1.20); EST Glomerular Filtration Rate 79 (>60); Globulin 2.4 g/dL (2.2-4.2); Glucose 97 mg/dL (70-99); Sodium Level 140 mmol/L (133-145); Total Bilirubin 0.26 mg/dL (0.00-1.30)
[2024-12-30 11:49] LABS: Cholesterol 235 mg/dL (<=200); Free T3 2.1 pg/mL (2.18-3.98); High Density Lipoprotein 71 mg/dL; Low Density Lipoprotein Calc. 144 mg/dL; Triglycerides 97 mg/dL; Very Low Density Lipoprotein 19 mg/dL (5-40); Vitamin B12 1913 pg/mL (180-914); Vitamin D,25 Hydroxy 52.3 ng/mL (30-100)
== END | disposition home or self-care (01) ==
PROVIDERS: PCP Nurse Practitioner Family; Referring Provider Nurse Practitioner Family; Visit Provider Nurse Practitioner Family
DX: Z12.31 Encounter for screening mammogram for malignant neoplasm of breast (principal); Z82.49 Family history of ischemic heart disease and other diseases of the circulatory system; Z83.2 Family history of diseases of the blood and blood-forming organs and certain disorders involving the immune mechanism; Z13.220 Encounter for screening for lipoid disorders; D68.59 Other primary thrombophilia; E03.9 Hypothyroidism, unspecified; F41.9 Anxiety disorder, unspecified; E78.5 Hyperlipidemia, unspecified; E55.9 Vitamin D deficiency, unspecified; R69 Illness, unspecified
CPT/HCPCS: 36415; 77063; 77067; 80053; 80061; 82306; 82607; 83036; 84439; 84481; 85025

== ENCOUNTER → 2025-02-17 | Outpatient (CLI) | payer MEDICARE, SELFPAY | END | disposition home or self-care (01) | LOC: LAB 09:13 | PROVIDERS: PCP Nurse Practitioner Family; Referring Provider Nurse Practitioner Family; Visit Provider Nurse Practitioner Family | DX: D68.69 Other thrombophilia (principal) | CPT/HCPCS: 36415 ==

== ENCOUNTER → 2025-10-21 | Outpatient (CLI) | payer MEDICARE, SELFPAY ==
[2025-10-21 09:00] LABS: Hematocrit 38.2 % (37-47); Hemoglobin 12.9 g/dL (12.0-15.0); Immature Granulocytes Count 0.010 X10^3/uL (0.0-0.0); Mean Corp Hgb Conc 33.8 g/dL (32-36); Mean Corpuscular Volume 95.3 fL (81-99); Mean Platelet Vol. 9.7 fl (6.2-12.0); NRBC Flagged by Analyzer 0 % (0-5); Platelet Count 279 K/mm3 (150-450); RBC Distribution Width CV 12.3 % (11.6-14.6); RBC Distribution Width SD 42.6 fl (35.1-43.9); Red Blood Count 4.01 M/mm3 (4.2-5.4); White Blood Count 6.0 K/mm3 (4.4-11.0)
[2025-10-21 09:47] LABS: AST(SGOT) 17 U/L (<=31); Alanine Aminotransfer ALT/SGPT 20 U/L (<=34); Albumin, Serum 4.5 g/dL (3.4-4.8); Alkaline Phosphatase 61 U/L (35-104); Anion Gap 9 (7-18); BUN 26 mg/dL (4-19); BUN/Creat Ratio 30.7 RATIO (10-20); Calcium,Total 10.1 mg/dL (7.6-11.0); Carbon Dioxide 24.9 mmol/L (20.0-29.0); Chloride 107 mmol/L (96-106); Cholesterol 214 mg/dL (<=200); Globulin 2.2 g/dL (2.2-4.2); Glucose 112 mg/dL (70-99); Low Density Lipoprotein Calc. 131 mg/dL; Potassium 4.8 mmol/L (3.5-5.1); Triglycerides 84 mg/dL; Very Low Density Lipoprotein 17 mg/dL (5-40); cholesterol:hdl ratio screen 3.12
[2025-10-21 10:00] LABS: Free T3 2.7 pg/mL (2.18-3.98); Vitamin D,25 Hydroxy 60.7 ng/mL (30-100)
[2025-10-21 10:56] LABS: Vitamin B12 1486 pg/mL (180-914)
== END | disposition home or self-care (01) ==
PROVIDERS: PCP Nurse Practitioner Family; Referring Provider Nurse Practitioner Family; Visit Provider Nurse Practitioner Family
DX: E03.9 Hypothyroidism, unspecified (principal); F41.9 Anxiety disorder, unspecified; Z13.9 Encounter for screening, unspecified; E78.5 Hyperlipidemia, unspecified; E55.9 Vitamin D deficiency, unspecified; R69 Illness, unspecified
CPT/HCPCS: 36415; 80053; 80061; 82306; 82607; 83036; 84439; 84443; 84481; 85025